=== PATIENT | male | born 1970 | race Caucasian/White ===

== ENCOUNTER 2017-12-13 16:18 | Inpatient (IN) | payer MEDICAID ==
[~2017-12-13] VITALS: Ht 193 cm; Wt 130.5 kg
[2017-12-14 04:00] LABS: Basophils # (auto) 0 uL; Basophils % (auto) 0.5 % (0.0-2.0); Eosinophils # (auto) 0 uL; Hematocrit 37.9 % (41.0-53.0); Hemoglobin 13.4 g/dL (13.5-17.5); Lymphocytes # (auto) 0.8 uL; Lymphocytes % (auto) 8.1 % (10.0-50.0); Mean Corpuscular Hemoglobin 29.6 pg (28.0-32.0); Mean Corpuscular Hgb Conc. 35.3 g/dL (32.0-36.0); Monocytes # (auto) 0.8 uL; Monocytes % (auto) 7.9 % (0.0-12.0); Neutrophils # (auto) 8.3 uL; Neutrophils % (auto) 83.5 % (37.0-80.0); Platelet Count (auto) 237 10^3/uL (140-450); Red Blood Cells 4.51 10^6/uL (4.5-5.90); Red Cell Distribution Width 13.5 % (11.8-14.3)
[2017-12-14 04:23] LABS: Albumin 3.7 g/dL (3.4-5.0); BUN/Creatinine Ratio 11.9; Calcium 8.9 mg/dL (8.5-10.1)
[2017-12-14 04:25] LABS: Bilirubin, Total 0.3 mg/dL (0.2-1.0); Total Protein 7.8 g/dL (6.4-8.2)
[2017-12-14] MEDS ORDERED: SODIUM CHLORIDE 0.9% 1,000 ML IV ONE ×2 (07:42)
[2017-12-14] MEDS ORDERED: PIPERACILLIN-TAZOB 3.375GM 50 ML IV ONE (07:45)
[2017-12-14] MEDS ORDERED: VANCOMYCIN 1GM/250ML 250 ML IV ONE (07:45)
[2017-12-14] MEDS ORDERED: LACTULOSE 20Gm/30ML SOLN PO PRN (08:45)
[2017-12-14] MEDS ORDERED: TEMAZEPAM 15 MG CAP PO PRN (08:45)
[2017-12-14] MEDS: cefTRIAXone 1GM/10ml IVPUSH 10 ML IV SCH (09:57)
[2017-12-14] MEDS: SODIUM CHLORIDE 0.9% 1,000 ML IV SCH ×2 (09:58→17:50)
[2017-12-14 10:04] LABS: INR 1.2 (0.9-1.15); Prothrombin Time 13.1 sec (9.37-12.3)
[2017-12-14 10:25] VITALS: BP 120/84
[2017-12-14] MEDS: ENOXAPARIN SOD 40 MG/0.4 ML SYRINGE SC SCH (10:55)
[2017-12-14] MEDS: MORPHINE SULFATE 4 MG/ML SYR/VIAL IV PRN ×3 (10:56→21:16)
[2017-12-14 12:00] VITALS: BP 139/82
[2017-12-14] MEDS: ACETAMINOPHEN 500 MG TAB PO PRN (12:17)
[2017-12-14] MEDS: PROMETHAZINE HCL 25 MG/ML 1ML IV PRN ×3 (12:17→21:16)
[2017-12-14 12:53] LABS: Hepatitis B Surface Antibody Negative
[2017-12-14 13:05] LABS: Hepatitis B Surface Antigen Negative (Negative)
[2017-12-14 13:32] LABS: Hepatitis A Total Antibody Negative; Hepatitis C Antibody Negative (Negative)
[2017-12-14 13:33] LABS: Hepatitis B Core Total AB Negative
[2017-12-14] MEDS: CLINDAMYCIN 600MG IV 50 ML IV SCH ×2 (14:01→22:05)
[2017-12-14 17:00] VITALS: BP 119/74
[2017-12-14 21:47] VITALS: BP 119/76
[2017-12-15] MEDS: PROMETHAZINE HCL 25 MG/ML 1ML IV PRN ×4 (01:27→17:40)
[2017-12-15] MEDS: MORPHINE SULFATE 4 MG/ML SYR/VIAL IV PRN ×5 (01:27→21:42)
[2017-12-15] MEDS: SODIUM CHLORIDE 0.9% 1,000 ML IV SCH ×2 (04:54→16:15)
[2017-12-15 05:14] VITALS: BP 113/60
[2017-12-15] MEDS: CLINDAMYCIN 600MG IV 50 ML IV SCH ×3 (05:49→21:41)
[2017-12-15 06:40] LABS: Basophils # (auto) 0 uL; Basophils % (auto) 0.7 % (0.0-2.0); Eosinophils # (auto) 0 uL; Eosinophils % (auto) 0.6 % (0.0-7.0); Hematocrit 39.1 % (41.0-53.0); Hemoglobin 13.1 g/dL (13.5-17.5); Lymphocytes # (auto) 1.6 uL; Lymphocytes % (auto) 24.7 % (10.0-50.0); Mean Corpuscular Hgb Conc. 33.5 g/dL (32.0-36.0); Mean Corpuscular Volume 86.6 fL (80.0-100.0); Monocytes # (auto) 1.1 uL; Monocytes % (auto) 16.9 % (0.0-12.0); Neutrophils # (auto) 3.6 uL; Neutrophils % (auto) 57.1 % (37.0-80.0); Nucleated Red Blood Cells % 0.2 %; Platelet Count (auto) 240 10^3/uL (140-450); Red Blood Cells 4.51 10^6/uL (4.5-5.90); Red Cell Distribution Width 13.7 % (11.8-14.3); White Blood Cell 6.3 10^3/uL (4.4-10.8)
[2017-12-15 07:27] LABS: Albumin 3.2 g/dL (3.4-5.0); BUN/Creatinine Ratio 14.3; Bilirubin, Total 0.3 mg/dL (0.2-1.0); Calcium 8.8 mg/dL (8.5-10.1); Potassium 4.7 mmol/L (3.5-5.1); Total Protein 7.5 g/dL (6.4-8.2)
[2017-12-15 07:41] LABS: Alcohol, Urine < 3.0 mg/dL (0-5); Amphetamine Screen, Urine NEGATIVE (NEGATIVE); Barbiturate Scree,Urine NEGATIVE (NEGATIVE); Benzodiazephine Screen, Urine NEGATIVE (NEGATIVE); Cannabinoid Screen, Urine NEGATIVE (NEGATIVE); Cocaine Screen, Urine NEGATIVE (NEGATIVE); Opiate Scree,Urine NEGATIVE (NEGATIVE); Phencyclidine Screen, Urine NEGATIVE (NEGATIVE)
[2017-12-15 08:00] VITALS: BP 108/70
[2017-12-15 08:59] LABS: Urine Bacteria NONE SEEN /hpf (None Seen); Urine Blood Negative /uL (Negative); Urine Mucus FEW (None Seen); Urine Specific Gravity 1.015 (1.001-1.035); Urine WBC 2 /hpf (0 - 3)
[2017-12-15] MEDS: cefTRIAXone 1GM/10ml IVPUSH 10 ML IV SCH (09:18)
[2017-12-15] MEDS: ENOXAPARIN SOD 40 MG/0.4 ML SYRINGE SC SCH (09:18)
[2017-12-15 12:00] VITALS: BP 118/71
[2017-12-15] MEDS ORDERED: LIDOCAINE HCL 100 MG/5ML (2%) SYRG INJ IV ONE (12:59)
[2017-12-15] MEDS ORDERED: PROPOFOL 10 MG/ML 20 ML IV ONE (12:59)
[2017-12-15] MEDS ORDERED: MIDAZOLAM HCL 1MG/1ML-2 ML VIAL ONE ×2 (13:05→13:38)
[2017-12-15] MEDS ORDERED: ceFAZolin 1GM/50ML 50 ML IV ONE (13:07)
[2017-12-15] MEDS ORDERED: BUPIVACAINE 0.75% INJ 10ML MPV SDV IJ ONE (13:22)
[2017-12-15] MEDS ORDERED: ceFAZolin 1GM VL ONE (13:22)
[2017-12-15] MEDS ORDERED: KETAMINE HCL 1 ML ONE (13:37)
[2017-12-15] MEDS ORDERED: diphenhdrAMINE HCL 50 MG/1 ML VL ONE (13:38)
[2017-12-15] MEDS ORDERED: METOCLOPRAMIDE HCL 5MG/ml INJ 2ml VIAL IV ONE (13:45)
[2017-12-15] MEDS ORDERED: hydrALAZINE HCL 20 MG/ML VL IV PRN (13:45)
[2017-12-15] MEDS ORDERED: KETOROLAC TROMETH 30 MG/ML 1ML VIAL IV PRN (13:45)
[2017-12-15] MEDS ORDERED: MORPHINE SULFATE 4 MG/ML SYR/VIAL IV PRN (13:45)
[2017-12-15] MEDS ORDERED: ONDANSETRON HCL 4 MG/2 ML VIAL IV ONE (13:45)
[2017-12-15] MEDS ORDERED: NALOXONE HCL 0.4 MG/ML VIAL IV PRN (13:45)
[2017-12-15 17:00] VITALS: BP 115/74
[2017-12-15] MEDS: ACETAMINOPHEN 500 MG TAB PO PRN (22:47)
[2017-12-15 22:48] VITALS: BP 126/76
[2017-12-16] MEDS: PROMETHAZINE HCL 25 MG/ML 1ML IV PRN ×5 (02:02→21:50)
[2017-12-16] MEDS: MORPHINE SULFATE 4 MG/ML SYR/VIAL IV PRN ×5 (02:02→21:49)
[2017-12-16] MEDS: SODIUM CHLORIDE 0.9% 1,000 ML IV SCH ×2 (04:19→13:38)
[2017-12-16 05:27] VITALS: BP 104/55
[2017-12-16] MEDS: CLINDAMYCIN 600MG IV 50 ML IV SCH ×3 (05:31→21:48)
[2017-12-16 07:38] VITALS: BP 135/62
[2017-12-16] MEDS: cefTRIAXone 1GM/10ml IVPUSH 10 ML IV SCH (08:27)
[2017-12-16] MEDS: ENOXAPARIN SOD 40 MG/0.4 ML SYRINGE SC SCH (11:03)
[2017-12-16] MEDS: ACETAMINOPHEN 500 MG TAB PO PRN (11:03)
[2017-12-16] MEDS ORDERED: BACITRACIN INJ 50000 UNIT VIAL TOP SCH (11:30)
[2017-12-16 11:42] VITALS: BP 127/62
[2017-12-16] MEDS: BACITRACIN TOP OINT 1 UD PKG TOP SCH (11:45)
[2017-12-16 16:24] VITALS: BP 111/55
[2017-12-16 22:00] VITALS: BP 114/62
[2017-12-17] MEDS: MORPHINE SULFATE 4 MG/ML SYR/VIAL IV PRN ×5 (02:02→22:38)
[2017-12-17] MEDS: PROMETHAZINE HCL 25 MG/ML 1ML IV PRN ×5 (02:03→22:44)
[2017-12-17] MEDS: SODIUM CHLORIDE 0.9% 1,000 ML IV SCH ×3 (02:03→16:38)
[2017-12-17 05:00] VITALS: BP 111/62
[2017-12-17] MEDS: CLINDAMYCIN 600MG IV 50 ML IV SCH (06:02)
[2017-12-17 07:22] LABS: Basophils # (auto) 0.1 uL; Basophils % (auto) 0.9 % (0.0-2.0); Eosinophils # (auto) 0.4 uL; Eosinophils % (auto) 6.1 % (0.0-7.0); Hematocrit 40.4 % (41.0-53.0); Hemoglobin 13.8 g/dL (13.5-17.5); Mean Corpuscular Hemoglobin 29.5 pg (28.0-32.0); Mean Corpuscular Hgb Conc. 34.1 g/dL (32.0-36.0); Mean Corpuscular Volume 86.5 fL (80.0-100.0); Monocytes # (auto) 1.1 uL; Monocytes % (auto) 17.3 % (0.0-12.0); Neutrophils # (auto) 2.7 uL; Neutrophils % (auto) 43.7 % (37.0-80.0); Nucleated Red Blood Cells % 0.2 %; Platelet Count (auto) 311 10^3/uL (140-450); Red Blood Cells 4.67 10^6/uL (4.5-5.90); Red Cell Distribution Width 13.9 % (11.8-14.3); White Blood Cell 6.2 10^3/uL (4.4-10.8)
[2017-12-17 07:50] LABS: BUN/Creatinine Ratio 19.2; Calcium 9.2 mg/dL (8.5-10.1); Potassium 4.1 mmol/L (3.5-5.1)
[2017-12-17] MEDS: HYDROcodone-ACET 5/325MG TAB PO PRN ×2 (08:51→16:57)
[2017-12-17] MEDS: cefTRIAXone 1GM/10ml IVPUSH 10 ML IV SCH (08:51)
[2017-12-17 09:01] VITALS: BP 102/59
[2017-12-17] MEDS: ENOXAPARIN SOD 40 MG/0.4 ML SYRINGE SC SCH (10:02)
[2017-12-17] MEDS: BACITRACIN TOP OINT 1 UD PKG TOP SCH (10:02)
[2017-12-17] MEDS ORDERED: LEVOFLOXACIN 500MG 100 ML IV ONE (11:00)
[2017-12-17 12:00] VITALS: BP 108/70
[2017-12-17 18:07] VITALS: BP 127/72
[2017-12-17] MEDS: traZODone HCL 50 MG TAB PO SCH (21:42)
[2017-12-17 22:00] VITALS: BP 110/67
[2017-12-18] MEDS: SODIUM CHLORIDE 0.9% 1,000 ML IV SCH ×3 (02:38→22:38)
[2017-12-18 05:00] VITALS: BP 110/74
[2017-12-18] MEDS: MORPHINE SULFATE 4 MG/ML SYR/VIAL IV PRN ×4 (06:33→23:00)
[2017-12-18] MEDS: PROMETHAZINE HCL 25 MG/ML 1ML IV PRN ×3 (06:33→23:00)
[2017-12-18] MEDS: HYDROcodone-ACET 5/325MG TAB PO PRN ×3 (08:25→20:37)
[2017-12-18] MEDS: LORazepam 0.5 MG TAB PO PRN ×3 (08:25→20:37)
[2017-12-18 09:00] VITALS: BP 105/73
[2017-12-18] MEDS: BACITRACIN TOP OINT 1 UD PKG TOP SCH (10:00)
[2017-12-18] MEDS: LEVOFLOXACIN 500MG 100 ML IV SCH (10:39)
[2017-12-18] MEDS: ENOXAPARIN SOD 40 MG/0.4 ML SYRINGE SC SCH (10:40)
[2017-12-18 13:00] VITALS: BP 120/74
[2017-12-18 20:00] VITALS: BP 107/65
[2017-12-18] MEDS: traZODone HCL 50 MG TAB PO SCH ×2 (21:22→21:24)
[2017-12-18 22:00] VITALS: BP 107/65
[2017-12-19] MEDS: HYDROcodone-ACET 5/325MG TAB PO PRN ×3 (02:43→18:53)
[2017-12-19] MEDS: LORazepam 0.5 MG TAB PO PRN ×3 (02:43→20:54)
[2017-12-19] MEDS: SODIUM CHLORIDE 0.9% 1,000 ML IV SCH (04:09)
[2017-12-19] MEDS: MORPHINE SULFATE 4 MG/ML SYR/VIAL IV PRN ×4 (04:55→20:21)
[2017-12-19] MEDS: PROMETHAZINE HCL 25 MG/ML 1ML IV PRN ×4 (04:55→20:20)
[2017-12-19 05:00] VITALS: BP 120/55
[2017-12-19 07:25] LABS: Hematocrit 38.8 % (41.0-53.0); Hemoglobin 13.1 g/dL (13.5-17.5); Mean Corpuscular Hemoglobin 29.3 pg (28.0-32.0); Mean Corpuscular Hgb Conc. 33.9 g/dL (32.0-36.0); Mean Corpuscular Volume 86.6 fL (80.0-100.0); Platelet Count (auto) 364 10^3/uL (140-450); Red Blood Cells 4.48 10^6/uL (4.5-5.90); Red Cell Distribution Width 13.7 % (11.8-14.3); White Blood Cell 7.7 10^3/uL (4.4-10.8)
[2017-12-19 07:46] LABS: Band Neutrophils % (manual) 0; Basophils % (manual) 0 (0.0-2.0); Blast Cells 0; Myelocytes % 0; Promyelocytes % 0; Reactive Lymphocytes 0
[2017-12-19 07:47] LABS: BUN/Creatinine Ratio 20.9; Bilirubin, Total 0.2 mg/dL (0.2-1.0); Calcium 8.7 mg/dL (8.5-10.1); Potassium 4.2 mmol/L (3.5-5.1); Total Protein 7.7 g/dL (6.4-8.2)
[2017-12-19 08:00] VITALS: BP 95/55
[2017-12-19 08:17] VITALS: BP 95/55
[2017-12-19] MEDS: LEVOFLOXACIN 500MG 100 ML IV SCH (09:28)
[2017-12-19] MEDS: BACITRACIN TOP OINT 1 UD PKG TOP SCH (09:28)
[2017-12-19] MEDS: ENOXAPARIN SOD 40 MG/0.4 ML SYRINGE SC SCH (09:29)
[2017-12-19] MEDS ORDERED: LEVOFLOXACIN 250 MG TAB PO SCH (10:00)
[2017-12-19] MEDS ORDERED: LEVOFLOXACIN 250 MG TAB PO ONE (10:15)
[2017-12-19 11:59] VITALS: BP 112/69
[2017-12-19 13:42] LABS: Eosinophils % (manual) 6 (0-7); Lymphocytes % (manual) 35 (10.0-50.0); Metamyelocytes % 3; Monocytes % (manual) 4 (0-12)
[2017-12-19 16:17] VITALS: BP 96/52
[2017-12-19] MEDS: traZODone HCL 50 MG TAB PO SCH (21:35)
[2017-12-19 22:18] VITALS: BP 127/84
[2017-12-20] MEDS: HYDROcodone-ACET 5/325MG TAB PO PRN ×2 (03:18→10:45)
[2017-12-20 05:37] VITALS: BP 94/54
[2017-12-20 08:00] VITALS: BP 132/77
[2017-12-20] MEDS: PROMETHAZINE HCL 25 MG/ML 1ML IV PRN ×2 (08:53→13:40)
[2017-12-20] MEDS: MORPHINE SULFATE 4 MG/ML SYR/VIAL IV PRN ×2 (08:54→13:40)
[2017-12-20 09:00] VITALS: BP 132/77
[2017-12-20] MEDS: ENOXAPARIN SOD 40 MG/0.4 ML SYRINGE SC SCH (09:02)
[2017-12-20] MEDS ORDERED: LEVOFLOXACIN 250 MG TAB PO SCH (10:00)
[2017-12-20] MEDS: BACITRACIN TOP OINT 1 UD PKG TOP SCH (10:44)
[2017-12-20 12:00] VITALS: BP 118/84
[2017-12-20 14:06] VITALS: BP 118/84
== END 2017-12-20 16:00 | disposition home or self-care (01) | DRG 710 ==
LOC: ER 16:26 → OVERFLOW 16:27 → EAST 12-14 11:02
PROVIDERS: ADMIT Internal Medicine; ATTEND Internal Medicine
PROC: 0J9Q0ZZ Drainage of Right Foot Subcutaneous Tissue and Fascia, Open Approach (ICD-10-PCS; principal; 2017-12-15 13:33)
DX: A41.9 Sepsis, unspecified organism (principal); N17.0 Acute kidney failure with tubular necrosis; D68.9 Coagulation defect, unspecified; E44.1 Mild protein-calorie malnutrition; K70.9 Alcoholic liver disease, unspecified; L03.031 Cellulitis of right toe; L02.611 Cutaneous abscess of right foot; E66.9 Obesity, unspecified; E78.5 Hyperlipidemia, unspecified; Z68.35 Body mass index [BMI] 35.0-35.9, adult
CPT/HCPCS: 36415; 71045; 73630; 73700; 76705; 80048; 80053; 80061; 80307; 81001; 83605; 85007; 85025; 85027; 85610; 85652; 85730; 86704; 86706; 86708; 86803; 87040; 87077; 87186; 87205; 87340; 93005; 93926; 93971; 96365; 96372; 96375; J0690; J1956; J2250; J2543; J2704; J3490